=== PATIENT | female | born 1950 | race Native Hawaiian/Other Pacific Islander ===

== ENCOUNTER 2018-05-28 10:34 | Outpatient (CLI) | payer OTHER | END 2018-05-28 10:35 | disposition home or self-care (01) | LOC: C.LAB 10:34 | DX: I10 Essential (primary) hypertension (principal); Z71.3 Dietary counseling and surveillance; H04.123 Dry eye syndrome of bilateral lacrimal glands ==

== ENCOUNTER 2018-06-24 09:42 | Outpatient (CLI) | payer OTHER | END 2018-06-24 09:43 | disposition home or self-care (01) | LOC: C.DEXAIC 09:42 | DX: Z12.31 Encounter for screening mammogram for malignant neoplasm of breast (principal); Z13.820 Encounter for screening for osteoporosis; M85.89 Other specified disorders of bone density and structure, multiple sites ==